=== PATIENT | male | born 1995 | race Hispanic/Latino ===

== ENCOUNTER 2020-03-23 20:46 | Emergency (ER) | payer OTHER ==
[2020-03-23] MEDS ORDERED: ACETAMINOPHEN EXTRA STRENGTH 500 MG TABLET ONE (21:00)
== END 2020-03-23 21:46 | disposition home or self-care (01) ==
LOC: EDH 20:46
DX: B34.9 Viral infection, unspecified (principal); Z20.828 Contact with and (suspected) exposure to other viral communicable diseases; Z72.0 Tobacco use; Z88.0 Allergy status to penicillin; Z88.2 Allergy status to sulfonamides
CPT/HCPCS: 71045; 87426; 99284; U0003

== ENCOUNTER 2023-09-15 19:54 | Emergency (ER) | payer OTHER ==
[~2023-09-15] VITALS: Ht 175.3 cm; Wt 80.7 kg
[2023-09-15 21:00] VITALS: BP 152/90; PULSE 88; RESP 18; O2SAT 99
[2023-09-15] MEDS ORDERED: CIPR7.5D7 AD (21:23)
[2023-09-15] MEDS: ACETAMINOPHEN 325 MG TAB PO ONE (21:57)
== END 2023-09-15 21:23 | disposition home or self-care (01) ==
LOC: EDH 19:54
DX: H60.8X1 Other otitis externa, right ear (principal); M54.2 Cervicalgia; R51.9 Headache, unspecified; R10.9 Unspecified abdominal pain; Z88.0 Allergy status to penicillin; Z88.2 Allergy status to sulfonamides; Z88.8 Allergy status to other drugs, medicaments and biological substances; Z98.890 Other specified postprocedural states; Y08.89XA Assault by other specified means, initial encounter; Y93.89 Activity, other specified; Y92.89 Other specified places as the place of occurrence of the external cause; Y99.8 Other external cause status
CPT/HCPCS: 70450; 70486; 71250; 72125; 74176

== ENCOUNTER 2024-01-10 20:14 | Emergency (ER) | payer SELFPAY ==
[~2024-01-10] VITALS: Ht 175.3 cm; Wt 71.7 kg
[~2024-01-10 20:14] MED LIST: CIPR7.5D7 AD
[2024-01-10 20:26] VITALS: BP 116/72; PULSE 84; RESP 18; TEMP 98.4; O2SAT 99
[2024-01-10 20:31] LABS: APPEARANCE,URINE CLEAR (CLEAR); BILIRUBIN,URINE NEGATIVE (NEGATIVE); COLOR,URINE YELLOW (YELLOW); GLUCOSE, URINE (UA) NEGATIVE (NEGATIVE); KETONES,URINE NEGATIVE (NEGATIVE); LEUKOCYTE ESTERASE ,URINE NEGATIVE Leu/uL (NEGATIVE); NITRATE,URINE NEGATIVE (NEGATIVE); OCCULT BLOOD,URINE NEGATIVE (NEGATIVE); PROTEIN,URINE 10 mg/dL (NEGATIVE); UROBILINOGEN,URINE 0.2 mg/dL (0.2-1.0)
[2024-01-10 20:33] LABS: ADD UA MICROSCOPIC YES
[2024-01-10 20:34] LABS: MUCUS,URINE RARE LPF (None Seen); SQUAMOUS EPITHELIAL CELL,UR RARE /HPF (0-2)
[2024-01-10 20:38] LABS: RAPID GROUP A STREP negative (NEGATIVE)
[2024-01-10 20:43] LABS: SARS-CoV-2, RNA, NAAT NEGATIVE SARS CoV-2 (NEGATIVE)
[2024-01-10 20:48] LABS: INFLUENZA TYPE A Negative For Type A (NEGATIVE); INFLUENZA TYPE B Negative For Type B (NEGATIVE)
[2024-01-10] MEDS: 0.9%NACL 1000ML 1,000 ML IV ONE (21:33)
[2024-01-10] MEDS: ondanSETRON 4MG INJ IVP ONE (21:34)
[2024-01-10] MEDS: PANTOPrazole 40 MG/VIAL IVP ONE (21:34)
[2024-01-10 21:35] LABS: BASOPHILS # (AUTO) 0.03 K/uL (0.00-0.20); BASOPHILS % (AUTO) 0.3 % (0.0-5.0); EOSINOPHILS # (AUTO) 0.01 K/uL (0.00-0.70); EOSINOPHILS % (AUTO) 0.1 % (0.0-8.0); HEMATOCRIT 45.5 % (42-54); IMMATURE GRANULOCYTE ABSOLUTE 0.04 K/uL (0-1); LYMPHOCYTES # (AUTO) 0.4 K/uL (1.0-4.8); LYMPHOCYTES % (AUTO) 3.7 % (21.0-51.0); MEAN CORPUSCULAR HEMOGLOBIN 29.7 pg (27.0-33.0); MEAN CORPUSCULAR HGB CONC 35.4 g/dL (32.0-36.0); MEAN CORPUSCULAR VOLUME 83.8 fL (79-99); MONOCYTES # (AUTO) 0.4 K/uL (0.1-1.0); MONOCYTES % (AUTO) 3.2 % (3.0-13.0); NEUTROPHILS # (AUTO) 10.7 K/uL (1.8-7.7); NEUTROPHILS % (AUTO) 92.4 % (40.0-77.0); PLATELET COUNT (AUTO) 213 K/uL (130-400); RED BLOOD CELL COUNT(AUTO) 5.43 MIL/uL (4.50-6.20); RED CELL DISTRIBUTION WIDTH 12.3 % (11.0-15.5); WHITE BLOOD COUNT (AUTO) 11.6 K/uL (4.8-10.8)
[2024-01-10 21:46] LABS: POTASSIUM 3.8 mmol/L (3.5-5.1)
[2024-01-10 21:49] LABS: ALBUMIN 3.8 g/dL (3.5-5.0); BILIRUBIN,DIRECT 0.2 mg/dL (0.0-0.3); BILIRUBIN,TOTAL 0.8 mg/dL (0.2-1.0); TOTAL PROTEIN, SERUM 7.4 g/dL (6.0-8.3)
[2024-01-10 21:57] LABS: AMPHET/METH SCREEN,URINE NEGATIVE (NEGATIVE); BARBITURATE SCREEN, URINE NEGATIVE (NEGATIVE); BENZODIAZEPINES SCREEN,URINE NEGATIVE (NEGATIVE); CANNABINOID SCREEN,URINE POSITIVE (NEGATIVE); COCAINE SCREEN,URINE POSITIVE (NEGATIVE); OPIATE SCREEN,URINE NEGATIVE (NEGATIVE); PHENCYCLIDINE SCREEN,URINE NEGATIVE (NEGATIVE)
[2024-01-10] MEDS ORDERED: ONDA-243 PO (22:44)
[2024-01-10] MEDS: ondanSETRON ODT 4MG TAB ONE (23:27)
[2024-01-10] MEDS: ondanSETRON ODT 4MG TAB SL ONE (23:28)
== END 2024-01-10 23:12 | disposition home or self-care (01) ==
LOC: EDH 20:14
DX: J06.9 Acute upper respiratory infection, unspecified (principal); B97.89 Other viral agents as the cause of diseases classified elsewhere; F32.A Depression, unspecified; F12.10 Cannabis abuse, uncomplicated; F14.10 Cocaine abuse, uncomplicated; Z20.822 Contact with and (suspected) exposure to COVID-19; Z79.899 Other long term (current) drug therapy; Z88.0 Allergy status to penicillin; Z88.2 Allergy status to sulfonamides; Z88.8 Allergy status to other drugs, medicaments and biological substances
CPT/HCPCS: 99284; 96374; 71045; 87635; 96375; 80076; 80048; 80305; 83690; 85025; 87880; 87804 ×2; 36415; 81001; J7030; J2405; J2470

== ENCOUNTER 2024-04-13 13:07 | Emergency (ER) | payer BC ==
[~2024-04-13] VITALS: Ht 175.3 cm; Wt 74.8 kg
[~2024-04-13 13:07] MED LIST changes: +ONDA-243 PO
[2024-04-13] MEDS: ondanSETRON 4MG INJ IVP ONE (13:57)
[2024-04-13] MEDS: LIDOCAINE HCL 1% 20 ML VIAL INJ SCH (13:57)
[2024-04-13] MEDS: morPHINE 2 MG SYG IVP ONE (13:57)
[2024-04-13] MEDS: teTANUS/diphthERIA TOXOID [ADULT] 0.5 ML VIAL IM ONE (13:59)
[2024-04-13] MEDS ORDERED: CLIN-141 PO (15:39)
[2024-04-13] MEDS ORDERED: KETO10TA2 PO (15:39)
--- NOTE | 2024-04-13 15:39 | ERN ---
General Chief Complaint: Laceration/Avulsion Stated Complaint: RIGHT HAND INJURY Time Seen by MD: 13:07 Time Seen by Midlevel: 13:07 Source: patient History of Present Illness Initial Comments Patient is a 28-year-old male presenting to the emergency department with a right hand laceration. Patient states he was working when a metal bar stepped that happened cut his right hand right underneath the 2nd digit. Patient states he is not up-to-date with his tetanus vaccination. Denies any other concerns at this time. Allergies: Coded Allergies: Antihistamines - Alkylamine (Unverified Allergy, Unknown, 09/15/23) Sulfa (Sulfonamide Antibiotics) (Unverified Allergy, Unknown, 09/15/23) amoxicillin (Unverified Allergy, Unknown, 09/15/23) clonazepam (Unverified Allergy, Unknown, 09/15/23) Home Meds Active Scripts Clindamycin HCl (Clindamycin HCl) 300 Mg Capsule, 1 CAP PO BID for 5 Days, #10 CAP 0 Refills Prov:AMADO MORALES 04/13/24 Ketorolac Tromethamine (Ketorolac Tromethamine) 10 Mg Tablet, 1 TAB PO TID for pain for 5 Days, #15 TAB 0 Refills Prov:AMADO MORALES 04/13/24 Ondansetron (Ondansetron Odt) 4 Mg Tab.rapdis, 4 MG PO Q6HPRN PRN for nausea, #16 TAB 0 Refills Prov:JOSSELINE HERNANDEZ MD 01/10/24 Ciprofloxacin HCl/Dexameth (Ciproflox-Dexameth Otic Susp) 0.3 %-0.1 % Drops.susp, 4 DROP AD BID for 7 Days, #7.5 ML Prov:AMADO MORALES 09/15/23 Past Medical History Past Medical History: Depression, Hypertension Medical History Other: HYDROCELE Past Surgical History: None ROS Dictation CONSTITUTIONAL: Negative except for HPI HEAD/FACE: Negative except for HPI EENT: Negative except for HPI RESPIRATORY: Negative except for HPI GASTROINTESTINAL/ABDOMINAL: Negative except for HPI GENITOURINARY: Negative except for HPI MUSCULOSKELETAL: Negative except for HPI INTEGUMENTARY: Negative except for HPI NEUROLOGICAL/PSYCH: Negative except for HPI HEMATOLOGIC/LYMPHATIC: Negative except for HPI All Systems Negative, Except as noted above. 13 point review of systems assessed and all negative except for above. Physical Exam Physical Exam Dictation PHYSICAL EXAM: GENERAL: alert,, awake oriented x 3 HEENT: EOMI, Sclera non icteric, moist mucosa NECK: Supple, no JVD, trachea midline LUNGS: Clear breath sounds bilaterally. No wheezes HEART: Regular rate and rhythm. Normal S1 and S2, without murmurs ABD: Abdomen soft, nontender. Bowel sounds present EXT: No clubbing or cyanosis, NEURO: Alert and oriented to person, follows commands SKIN: L-shaped laceration measuring approximately 4 cm to the right palmar aspect just underneath the 2nd digit, patient is unable to flex the right 2nd digit concerning for tendon laceration MDM MDM:Patient is a 28-year-old male presenting to the emergency department with a right hand laceration. Patient states he was working when a metal bar stepped that happened cut his right hand right underneath the 2nd digit. Patient states he is not up-to-date with his tetanus vaccination. Denies any other concerns at this time. On physical examination there is an L-shaped laceration measuring approximately 4 cm to the right palmar aspect just underneath the 2nd digit, patient is unable to flex the right 2nd digit concerning for tendon laceration. Orthopedic surgeon was consulted who recommends repairing laceration. Patient may follow up outpatient in his clinic 1st thing tomorrow morning. This was discussed with the patient and he agrees with plan. The laceration was successfully repaired with five 3-0 Ethilon simple interrupted sutures. There was thoroughly cleansed with Betadine and wound cleanser. The patient was given a tetanus vaccination in the emergency department and was discharged home with oral antibiotics for prophylactic treatment. Differential diagnosis: Laceration, foreign body, tendon laceration There are no social concerns with this patient. Prescription drug management Prescriptions will include: Toradol and clindamycin Medical management and examination interpretation discussions were had by me with other qualified healthcare professionals as indicated for the patient's care. ED Course Orders Procedure Category Date Status Time Hand 2+Vws Rt Limited RAD 04/13/24 Taken 13:31 Tetanus,Diphtheria PHA 04/13/24 Complete Tox [Adult] (Diphther 14:00 Morphine 2mg Syg PHA 04/13/24 Complete (Morphine 2mg Syg) 14:00 Ondansetron 4mg Inj PHA 04/13/24 Complete (Zofran 4mg Inj) 14:00 Lidocaine Hcl 1% 20ml PHA 04/13/24 In Process Vial (Lidocaine Hc 14:00 Laceration Tray Set CPOE 04/13/24 Transmitted Up (Er) 13:31 Ketorolac PHA 04/13/24 Complete Tromethamine 15mg/Ml 15:00 Current Medications Medications (Trade) Dose Ordered Sig/Preet Route PRN Reason Start Time Stop Time Status Last Admin Dose Admin Ketorolac Tromethamine (toRADol) 15 mg ONCE ONCE IV 04/13/24 15:00 04/13/24 15:01 DC Lidocaine HCl (Lidocaine HCl 1% 20ml Vial) ONCE INJ 04/13/24 14:00 05/13/24 13:59 04/13/24 13:57 Morphine Sulfate (morPHINE 2MG SYG) 2 mg ONCE ONCE IVP 04/13/24 14:00 04/13/24 14:01 DC 04/13/24 13:57 Ondansetron HCl (zoFRAN 4MG INJ) 4 mg ONCE ONCE IVP 04/13/24 14:00 04/13/24 14:01 DC 04/13/24 13:57 Tetanus/ Diphtheria Toxoids Adsorbed (DiphthERIA-teTANUS TOXOID [ADULT]/ DECAVAC) 0.5 ml ONCE ONCE IM 04/13/24 14:00 04/13/24 14:01 DC 04/13/24 13:59 Vital Signs Date Time Temp Pulse Resp B/P (MAP) Pulse Ox O2 Delivery O2 Flow Rate FiO2 04/13/24 13:47 98.1 16 16 120/76 98 Room Air* 0 21 04/13/24 13:34 98.1 79 16 120/76 97 Room Air Procedure Dictation Procedure Name: Laceration Repair Indication: Reduce risk of infection Location: L-shaped laceration measuring approximately 4 cm to the right palmar aspect just underneath the 2nd digit Pre-Procedure Diagnosis: Laceration Post-Procedure Diagnosis: Repaired Laceration Informed consent was obtained before procedure started. PROCEDURE: The appropriate timeout was taken. The area was prepped and draped in the usual sterile fashion. Local anesthesia was achieved using 5cc of Lidocaine 1% witho ut epinephrine. The wound was copiously irrigated. 5 3-0 Ethilon simple interrupted sutures were placed. Estimated blood loss was less than 0.5 mL. A dressing was applied to the area and anticipatory guidance, as well as standard post-procedure care, was explained. Return precautions are given. The patient tolerated the procedure well without complications. Follow-up visit set for suture removal and evaluation of the laceration. DX & DISP Disposition: Discharge Departure Impression: Primary Impression: Laceration of right hand involving tendon Condition: Stable Scripts Clindamycin HCl (Clindamycin HCl) 300 Mg Capsule 1 CAP PO BID for 5 Days, #10 CAP 0 Refills Prov: AMADO MORALES 04/13/24 Ketorolac Tromethamine (Ketorolac Tromethamine) 10 Mg Tablet 1 TAB PO TID for pain for 5 Days, #15 TAB 0 Refills Prov: AMADO MORALES 04/13/24 Additional Instructions: Your right hand x-ray does not show any evidence of a foreign body or acute fracture. The laceration to your right hand appears to involve your tendon. This was discussed with document management specialist Dr. Jim who recommends closing the wound and following up in his clinic tomorrow morning at 8:00 a.m.. Please report to his clinic for outpatient evaluation. I have given you a prescription for oral antibiotics to prevent an infection. I have also given you a prescription for pain medication. The sutures will need to be removed in 10 days. You may follow up with your primary care doctor return to the ER for suture removal. Referrals: SELF,REFERRAL (PCP) ELIEZER JIM MD Time of Disposition: 15:35 I have reviewed the case, and I agree with, Diagnosis and Plan I performed the substantive portion of the visit. I have reviewed and personally made and approve the management plan that is documented in the note by myself or the EDU. I acknowledge for responsibility for the patient's management plan. AMADO MORALES Apr 13, 2024 15:39
[2024-04-13] MEDS: ketOROlac 15MG/ML VIAL (15MG/ML) IV ONE (15:43)
[2024-04-13 15:51] VITALS: BP 118/75; PULSE 70; RESP 16; TEMP 98.1; O2SAT 98
--- NOTE | 2024-04-13 16:25 | HMCIMG ---
HAND 2+VWS RT LIMITED HISTORY: Foreign body COMPARISON: None TECHNIQUE: 2 images of right hand were obtained. FINDINGS: There is no acute displaced fracture or dislocation. No evidence of radiopaque foreign body is seen. IMPRESSION: 1. Findings as described above.
[2024-04-30] MEDS ORDERED: ALPR2TAB7 PO (11:08)
[2024-04-30] MEDS ORDERED: SERT-440 PO (11:08)
[2024-05-01] MEDS ORDERED: ALPR2TAB7 PO (10:20)
[2024-05-01] MEDS ORDERED: ALPR-411 PO (10:26)
[2024-05-01] MEDS ORDERED: ALPR1TAB7 PO (10:29)
== END 2024-04-13 16:04 | disposition home or self-care (01) ==
LOC: EDH 13:07
DX: S61.411A Laceration without foreign body of right hand, initial encounter (principal); I10 Essential (primary) hypertension; F32.A Depression, unspecified; Z88.0 Allergy status to penicillin; Z88.2 Allergy status to sulfonamides; W20.8XXA Other cause of strike by thrown, projected or falling object, initial encounter; Y93.89 Activity, other specified; Y92.89 Other specified places as the place of occurrence of the external cause; Y99.0 Civilian activity done for income or pay
CPT/HCPCS: 99284; 96374; 96375; 90714; 73120; 90471; 12002; J1885; J2270; J2405

== ENCOUNTER 2024-04-16 13:33 | Emergency (ER) | payer BC ==
[~2024-04-16] VITALS: Ht 175.3 cm; Wt 81.6 kg
[~2024-04-16 13:33] MED LIST changes: +CLIN-141 PO; +KETO10TA2 PO
--- NOTE | 2024-04-16 14:38 | ERN ---
ED Note History of Present Illness Stated Complaint: OTHER Time Seen by MD: 13:35 Dictation: PATIENT HERE WITH COMPLAINTS OF PAIN TO THE RIGHT HAND STATUS POST A LACERATION REPAIR AT [facility] [place] ON 04/13. HE HAD BEEN SUTURED, WAS GIVEN CLINDAMYCIN AND DISCHARGED HOME TO FOLLOW UP WITH AT 08:00 O'CLOCK THE NEXT MORNING. THE APPOINTMENT HAS BEEN MADE BY THE PA WHO TOOK CARE OF THE PATIENT. PATIENT STATES I GOT SO TIED UP WORRIED ABOUT BE MEDICATIONS CAUSED HIM IN ANAPHYLACTIC REACTION I DID NOT START ANY THE MEDICATIONS OR ANTIBIOTICS, NOR DID I READ THE INSTRUCTIONS TO GO SEE ORTHOPEDIC SURGEON IN THE NEXT DAY. Allergies: Coded Allergies: Antihistamines - Alkylamine (Unverified Allergy, Unknown, 09/15/23) NSAIDS (Non-Steroidal Anti-Inflamma (Unverified Allergy, Unknown, 04/14/24) Sulfa (Sulfonamide Antibiotics) (Unverified Allergy, Unknown, 09/15/23) amoxicillin (Unverified Allergy, Unknown, 09/15/23) bee pollen (Unverified Allergy, Unknown, 04/16/24) clonazepam (Unverified Allergy, Unknown, 09/15/23) Home Meds Active Scripts Clindamycin HCl (Clindamycin HCl) 300 Mg Capsule, 1 CAP PO BID for 5 Days, #10 CAP 0 Refills Prov:AMADO MORALES 04/13/24 Ketorolac Tromethamine (Ketorolac Tromethamine) 10 Mg Tablet, 1 TAB PO TID for pain for 5 Days, #15 TAB 0 Refills Prov:AMADO MORALES 04/13/24 Ondansetron (Ondansetron Odt) 4 Mg Tab.rapdis, 4 MG PO Q6HPRN PRN for nausea, #16 TAB 0 Refills Prov:JOSSELINE HERNANDEZ MD 01/10/24 Ciprofloxacin HCl/Dexameth (Ciproflox-Dexameth Otic Susp) 0.3 %-0.1 % Drops.susp, 4 DROP AD BID for 7 Days, #7.5 ML Prov:AMADO MORALES 09/15/23 Past Medical History Past Medical History: Depression, Hypertension Additional Past Medical Hx: HYDROCELE Surgical History: None RN Note Reviewed/Agreed w/PFSH: Yes Review of System Dictation CONSTITUTIONAL: Negative except for HPI HEAD/FACE: Negative except for HPI EENT: Negative except for HPI RESPIRATORY: Negative except for HPI GASTROINTESTINAL/ABDOMINAL: Negative except for HPI GENITOURINARY: Negative except for HPI MUSCULOSKELETAL: Negative except for HPI INTEGUMENTARY: Negative except for HPI flap laceration with sutures in place to palmar right hand mild erythema noted NEUROLOGICAL/PSYCH: Negative except for HPI HEMATOLOGIC/LYMPHATIC: Negative except for HPI All Systems Negative, Except as noted above. 13 point review of systems assessed and all negative except for above. Initial Vital Sign VS Vital Signs Date Time Temp Pulse Resp B/P (MAP) Pulse Ox O2 Delivery O2 Flow Rate FiO2 04/16/24 14:43 97.3 74 18 127/73 98 04/16/24 15:01 Room Air* 0 21 Physical Exam Dictation Vital Signs reviewed General Appearance: Alert, oriented x 3, moderate acute distress, well developed, nourished. Head and Face: non-traumatic. Eyes: PERRL, pink conjunctivas, eyelid no trauma, anterior chamber with arcus senilis. Ears: Pinnas intact and no signs of trauma or erythema ear canals clear and no discharge TM no erythema Nose: No discharge, no bleeding. Oropharynx: Mouth normal, tongue pink, pharynx clear,no erythema, tonsils no exudates, no abscesses noted, mucous membrane moist Neck: Supple, non-tender, no thyromegaly, no masses, no JVD, no bruits Breast:Deferred Chest:No tenderness, no crepitus, no paradoxical movement, no retractions Lungs:Clear, well-ventilated, symmetric, no rales, no wheezing, no rhonchi, no stridor, good breath sounds bilaterally Heart: Regular rate, regular rhythm, no murmur, no gallops Vascular: no peripheral edema, Abdomen: Soft, positive bowel sounds, nondistended, no guarding, nontender, no rebound, no masses no hepatomegaly, no splenomegaly, no Ash's sign, no hernias. Rectal: Deferred Genital: Deferred Neurological: Normal speech, motor function intact, sensory function intact Musculoskeletal: Neck nontender, full range of motion, back nontender, full range of motion, Extremities: nontender, full range of motion Skin: Color pink, laceration with repair to right palmar hand. Mild erythema noted sutures are intact. Skin is granulating well no drainage noted Lymphatic: Deferred Results (Laboratory/Radiology) Laboratory/Radiology Laboratory Tests Test 04/16/24 14:59 White Blood Count 10.4 K/uL (4.8-10.8) Red Blood Count 5.34 MIL/uL (4.50-6.20) Hemoglobin 16.0 g/dL (14.0-18.0) Hematocrit 47.1 % (42-54) Mean Corpuscular Volume 88.2 fL (79-99) Mean Corpuscular Hemoglobin 30.0 pg (27.0-33.0) Mean Corpuscular Hemoglobin Concent 34.0 g/dL (32.0-36.0) Red Cell Distribution Width 12.8 % (11.0-15.5) Platelet Count 213 K/uL (130-400) Mean Platelet Volume 10.3 fL (7.5-10.5) Nucleated Red Blood Cells 0.0 % (0.0-0.19) Sodium Level 141 mmol/L (136-145) Potassium Level 4.1 mmol/L (3.5-5.1) Chloride Level 104 mmol/L (101-111) Carbon Dioxide Level 32 mmol/L (21-32) Blood Urea Nitrogen 14 mg/dL (7-18) Creatinine 0.7 mg/dL (0.5-1.3) Glomerular Filtration Rate Calc 128 mL/min (>90) Random Glucose 94 mg/dL (70-105) Total Calcium 9.2 mg/dL (8.5-10.1) Labs Reviewed?: Yes ED Course ED Course Orders Procedure Category Date Status Time Cbc Without LAB 04/16/24 Complete Differential 14:34 Basic Metabolic Panel LAB 04/16/24 Complete 14:34 Clindamycin 150mg Cap PHA 04/16/24 Complete (Cleocin 150mg Cap 15:00 Acetaminophen 500mg PHA 04/16/24 Complete Tab (Tylenol 500mg T 15:00 Current Medications Medications (Trade) Dose Ordered Sig/Preet Route PRN Reason Start Time Stop Time Status Last Admin Dose Admin Acetaminophen (TYLenol 500MG TAB) 1,000 mg ONCE ONCE PO 04/16/24 15:00 04/16/24 15:01 DC 04/16/24 14:58 Clindamycin HCl (Cleocin 150mg Cap) 600 mg ONCE ONCE PO 04/16/24 15:00 04/16/24 15:01 DC 04/16/24 14:59 Vital Signs Date Time Temp Pulse Resp B/P (MAP) Pulse Ox O2 Delivery O2 Flow Rate FiO2 04/16/24 15:01 98.1 72 16 125/70 98 Room Air* 0 21 04/16/24 14:43 97.3 74 18 127/73 98 1532 Patient discharged home after given Tylenol for pain and loading him with clindamycin. He was made aware to follow up with , call for an appointment tomorrow. Medical Decision Making MDM Medical discharge making based on labs and loading patient with clindamycin. Patient was noncompliant and following up with orthopedic surgeon, was strongly reminded to see in the next 1-2 days, call for an appointment in the morning. Additionally continue clindamycin at home, states he has been taking it as instructed. Finally [id number] Tylenol extra-strength for pain. DX & DISP Disposition: Discharge Departure Impression: Primary Impression: Encounter for wound re-check Condition: Stable Additional Instructions: Follow-up with primary care provider in 1 to 2 days. Take medications as directed here in the emergency room. Okay to continue home medications unless otherwise discussed during your visit in the emergency room today. Return to your nearest emergency room if symptoms worsen or if there is no improvement. Call 911 if you need immediate assistance. Take Tylenol [id number] as needed and if no contraindications are present. Increase oral hydration. A wound culture or urine culture was ordered here in the emergency room department please follow-up with primary care provider and advise them to get repeat ports from our facility. If you had any Efren wrap/splints that were applied here, please do not remove them until you see your primary care or specialty. Continue clindamycin at home as directed from your ER visit on 04/13/2023. Take Tylenol [id number] as needed for pain. Call in the morning for follow up in the next 1-2 days Referrals: NONE (PCP) ELIEZER BONILLA MD, JACK P NP Apr 16, 2024 14:38
[2024-04-16] MEDS: acetaMINOPHEN 500 MG TABLET PO ONE (14:58)
[2024-04-16] MEDS: CLINDAMYCIN 150 MG CAP PO ONE (14:59)
[2024-04-16 15:05] LABS: HEMATOCRIT 47.1 % (42-54); MEAN CORPUSCULAR VOLUME 88.2 fL (79-99); RED BLOOD CELL COUNT(AUTO) 5.34 MIL/uL (4.50-6.20); RED CELL DISTRIBUTION WIDTH 12.8 % (11.0-15.5); WHITE BLOOD COUNT (AUTO) 10.4 K/uL (4.8-10.8)
[2024-04-16 15:19] LABS: CREATININE 0.7 mg/dL (0.5-1.3); POTASSIUM 4.1 mmol/L (3.5-5.1)
[2024-04-16 16:03] VITALS: BP 125/70; PULSE 70; RESP 16; TEMP 98.3; O2SAT 98
[2024-04-30] MEDS ORDERED: SERT-440 PO (11:08)
[2024-04-30] MEDS ORDERED: ALPR2TAB7 PO (11:08)
[2024-05-01] MEDS ORDERED: ALPR2TAB7 PO (10:20)
[2024-05-01] MEDS ORDERED: ALPR-411 PO (10:26)
[2024-05-01] MEDS ORDERED: ALPR1TAB7 PO (10:29)
== END 2024-04-16 16:09 | disposition home or self-care (01) ==
LOC: EDH 13:33
DX: S61.411D Laceration without foreign body of right hand, subsequent encounter (principal); I10 Essential (primary) hypertension; F32.A Depression, unspecified; Z88.0 Allergy status to penicillin; Z88.2 Allergy status to sulfonamides; Z88.6 Allergy status to analgesic agent; Z91.030 Bee allergy status; X58.XXXD Exposure to other specified factors, subsequent encounter
CPT/HCPCS: 36415; 80048; 85027; 99283